=== PATIENT | female | born 1990 | race Caucasian/White ===

== ENCOUNTER 2016-09-12 09:40 | Inpatient (IN) | payer OTHER ==
--- NOTE | 2016-09-11 13:07 | HP ---
Dieter Quigley DATE OF SURGERY: 09/12/2016 PREOPERATIVE DIAGNOSES: 1. Intrauterine at term with two previous sections. 2. Desires tubal ligation. PROCEDURE PLANNED: A repeat low transverse section and a tubal ligation. HISTORY: The patient is a 26-year-old 5, para 2, AB 2 woman with an estimated date of confinement of 09/19/2016 currently at 39 weeks gestation. Her has been uncomplicated. Her first two babies were delivered by and she has been planning a repeat with this . She also states her family will be complete and she wants a tubal ligation. She understands that it is permanent and there is no guarantee of success. PAST MEDICAL HISTORY: Patient's dates are from an ultrasound done at 7 weeks and 1 day. Patient had cholestasis of with her last , but not with this one. PAST SURGICAL HISTORY: She has had two C-sections. CURRENT MEDICATIONS: She is on vitamins. ALLERGIES: No known allergies. FAMILY HISTORY: Noncontributory. SOCIAL HISTORY: Patient is [place] speaking and she lives with her and two children. Does not smoke. Does not use alcohol. REVIEW OF SYSTEMS: Patient denies fever, chills, nausea, vomiting, diarrhea, constipation. PHYSICAL EXAMINATION: GENERAL: She is a healthy appearing woman. VITAL SIGNS: Blood pressure 138/80. HEENT: Normal. LUNGS: Clear. HEART: Normal S1 and S2. ABDOMEN: Soft, nontender. Fundal height of 38 cm. Good heart tones. IMPRESSION: At term with two previous sections who also desires a tubal ligation. PLAN: To do a repeat low transverse section and a tubal ligation. JOB: [id number]
[2016-09-12] MEDS ORDERED: IV START KIT ONE (10:04)
[2016-09-12] MEDS ORDERED: LACTATED RINGERS 1,000 ML ONE (10:05)
[2016-09-12] MEDS ORDERED: SODIUM CHLORIDE 0.9% FLUSH 10 ML ONE (10:05)
[2016-09-12 10:41] VITALS: BMI 32.3
[2016-09-12] MEDS: LACTATED RINGERS 1,000 ML IV SCH ×3 (11:00→14:12)
[2016-09-12] MEDS ORDERED: CEFAZOLIN SODIUM 2 GRAM DUPLEX 2 G in Premix (D5W) 50 ml 1 EACH IV PRN (11:14)
[2016-09-12 11:35] LABS: HEMATOCRIT 30.5 % (37.0-47.0); HEMOGLOBIN 9.9 gm/l (12.0-16.0); MEAN CELL VOLUME 85.2 fl (81.0-99.0); MEAN CORPUSCULAR HEMOGLOBIN 27.7 pg (27.0-31.0); MEAN CORPUSCULAR HGB CONC 32.5 g/dl (33.0-37.0); RED CELL DISTRIBUTION WIDTH 13.8 % (11.5-14.5)
[2016-09-12] MEDS ORDERED: CEFAZOLIN SODIUM 2 GRAM DUPLEX 50 ML IV ONE (11:45)
[2016-09-12] MEDS ORDERED: SPINAL PROCEDURAL TRAY 1 EACH ONE (14:00)
[2016-09-12] MEDS ORDERED: MORPHINE SULFATE (DURAMORPH) 1 MG/ML 10ML AMP ONE (14:02)
[2016-09-12] MEDS ORDERED: ONDANSETRON 4 MG/2ML 2 ML VIAL ONE (14:02)
[2016-09-12] MEDS ORDERED: EPHEDRINE SULFATE UD SYR 25 MG 25 MG/5 ML SYRINGE IV ONE (14:35)
[2016-09-12] MEDS ORDERED: OXYTOCIN 10 UNITS/ML VIAL ONE ×3 (14:46→15:16)
[2016-09-12] MEDS ORDERED: EPHEDRINE SULFATE 50 MG/ML 1ML VIAL IV PRN (15:28)
[2016-09-12] MEDS ORDERED: DIPHENHYDRAMINE HCL 50 MG/1 ML VIAL IV PRN (15:28)
[2016-09-12] MEDS ORDERED: PROMETHAZINE HCL 25 MG/ML VIAL IM PRN (15:28)
[2016-09-12] MEDS ORDERED: NALOXONE HCL 0.4 MG/ML VIAL IV PRN (15:28)
[2016-09-12] MEDS ORDERED: HYDROMORPHONE HCL 2 MG/ML SYRINGE IV PRN (15:28)
[2016-09-12] MEDS ORDERED: KETOROLAC TROMETHAMINE 30 MG/ML 1 ML VIAL ONE (15:31)
[2016-09-12] MEDS ORDERED: DIPHTH,PERTUSS(ACELL),TET VAC 0.5 ML VIAL IM V ONE (15:56)
[2016-09-12] MEDS ORDERED: MEASLES,MUMPS&RUBELLA VACCINE 0.5 ML VIAL SUB-Q V ONE (15:56)
[2016-09-12] MEDS ORDERED: LANOLIN 50 APPLIC/7G TUBE TP PRN (15:56)
[2016-09-12] MEDS: D5LR 1,000 ML IV SCH (18:11)
[2016-09-12] MEDS: NICOTINE 21 MG PATCH 1 EACH TD SCH (18:12)
[2016-09-12] MEDS: HYDROMORPHONE HCL 1 MG/ML SYRINGE IV PRN ×2 (18:27→21:43)
[2016-09-12] MEDS ORDERED: ONDANSETRON 4 MG/2ML 2 ML VIAL IV PRN (20:00)
[2016-09-12] MEDS: IBUPROFEN 800 MG TABLET PO PRN (21:34)
[2016-09-12] MEDS ORDERED: PNEUMOCOCCAL 23-VAL P-SAC VAC 0.5 ML VIAL IM V ONE (22:23)
[2016-09-12] MEDS: OXYCODONE/ACETAMINOPHEN 5/325 MG TABLET PO PRN (23:30)
[2016-09-12] MEDS: AZITHROMYCIN 250 MG TABLET PO SCH (23:32)
[2016-09-13] MEDS: DOCUSATE SODIUM 100 MG CAPSULE PO SCH ×3 (03:03→19:59)
[2016-09-13] MEDS: D5LR 1,000 ML IV SCH ×2 (03:23→08:02)
[2016-09-13] MEDS: IBUPROFEN 800 MG TABLET PO PRN ×4 (03:41→21:51)
[2016-09-13] MEDS: OXYCODONE/ACETAMINOPHEN 5/325 MG TABLET PO PRN ×5 (03:41→19:59)
[2016-09-13 06:41] LABS: HEMATOCRIT 27.5 % (37.0-47.0); HEMOGLOBIN 9.1 gm/l (12.0-16.0); MEAN CELL VOLUME 84.6 fl (81.0-99.0); MEAN CORPUSCULAR HGB CONC 33.1 g/dl (33.0-37.0); RED CELL DISTRIBUTION WIDTH 13.8 % (11.5-14.5)
--- NOTE | 2016-09-13 08:29 | OP ---
Dieter Quigley DATE: 09/12/2016 PREOPERATIVE DIAGNOSES: 1. Intrauterine at term with two previous sections for a repeat section. 2. Desires tubal ligation. POSTOPERATIVE DIAGNOSES: 1. Intrauterine at term with two previous sections for a repeat section. 2. Desires tubal ligation. OPERATION PERFORMED: A repeat low transverse section and a tubal ligation. PROCEDURE: The patient was taken to the operating room and spinal anesthesia was administered. She was placed in the supine position and prepped and draped in the usual sterile fashion. Her previous incisional scar was removed with a scalpel. A second scalpel was used to reach the fascia. The fascial incision was extended with Lux scissors. The perineum was entered with Metzenbaum's and extended laterally. An Gonzalo self retaining retractor was inserted. The peritoneum overlying the lower uterine segment was entered transversely with Metzenbaum's and the bladder pushed downwards. A small yoko was in the uterine lower segment with a knife and extended laterally with fingers. It was very thin lower segment. Amniotic fluid was clear. Using a Mityvac a live born infant male was delivered from a vertex presentation without complications. There was a nuchal cord x1. Cord was not clamped for 30 seconds and then clamped and baby passed off to the nurses. Placenta was manually removed and complete. The uterus was closed in layers with the first layer being a running locking suture of 0 Vicryl, second was an imbricating layer of 0 Vicryl. Hemostasis was checked and found to be good. Each tube was identified by noting its fimbriated end. Each tube was grasped with [place] in its mid section and each tube was doubly ligated with 0 Chromic and the ports within the Ligasure was removed with scissors and the ends cauterized. Hemostasis was good bilaterally. The anterior peritoneum was then closed with a running suture of 2-0 Vicryl. The fascia was closed with two separate running sutures of 0 Vicryl. Skin was closed with abran. Patient tolerated the procedure well and was taken to the recovery room in stable condition. All sponge, instrument, and needle counts were correct. Estimated blood loss 600 mL. JOB: [id number]
[2016-09-13] MEDS ORDERED: NICOTINE 21 MG PATCH 1 EACH TD SCH (09:00)
[2016-09-13] MEDS: PRENATAL VIT/FE FUMARATE/FA 1 TABLET PO SCH (09:32)
--- NOTE | 2016-09-13 11:38 | PDOC44 ---
- Subjective Day: 1 Reports Pain Tolerable, Reports , Reports Lochia Light - Objective Temp Pulse Resp BP Pulse Ox 98.2 F 85 16 94/48 100 09/13/16 07:54 09/13/16 07:54 09/13/16 07:54 09/13/16 07:54 09/12/16 18:00 Lab Results 09/13/16 06:00 WBC 19.1 H RBC 3.25 L Hgb 9.1 L Hct 27.5 L Plt Count 315 Current Medications Generic Name Dose Route Start Last Admin Trade Name Freq PRN Reason Stop Dose Admin Azithromycin 250 mg 09/12/16 18:00 09/12/16 23:32 Zithromax PO 250 mg DAILY HINA Administration Diphenhydramine HCl 25 - 50 mg 09/12/16 15:28 Benadryl IV 09/13/16 14:27 Q4H PRN Itching Diphenhydramine HCl 25 - 50 mg 09/13/16 14:28 Benadryl PO Q6H PRN Itching (Mild/Moderate) Diphenhydramine HCl 25 - 50 mg 09/13/16 14:28 Benadryl IV Q6H PRN Itching (Severe) Docusate Sodium 100 mg 09/12/16 21:00 09/13/16 09:33 Colace PO 100 mg BID HINA Administration Emollient Ointment 1 applic 09/12/16 15:56 [id number] TP PRN PRN sore nipples Ephedrine Sulfate 5 - 10 mg 09/12/16 15:28 Ephedrine Sulfate IV 09/13/16 14:27 Q5M PRN Hydromorphone HCl 0.5 - 2 mg 09/12/16 15:28 09/12/16 21:43 Dilaudid IV 09/13/16 14:27 0.5 mg Q1H PRN Administration Pain (Breakthrough) Hydromorphone HCl 0.5 - 2 mg 09/12/16 15:28 Dilaudid IV 09/13/16 14:27 Q1H PRN Pain Dextrose/Lactated Ringer's 1,000 mls @ 125 mls/hr 09/12/16 15:56 09/13/16 08:02 D5lr IV Not Given .Q8H HINA Ibuprofen 800 mg 09/12/16 21:30 09/13/16 09:32 Motrin PO 800 mg Q6H PRN Administration Pain Multivi/Iron Carb/Fe Sulf/FA/Prenat 1 tab 09/13/16 09:00 09/13/16 09:32 Plus PO 1 tab DAILY HINA Administration Naloxone HCl 0.2 - 0.4 mg 09/12/16 15:28 Narcan IV 09/13/16 14:27 Q5M PRN Nicotine 1 each 09/12/16 15:15 09/12/16 18:12 Nicoderm Cq TD 1 each DAILY HIAN Administration Ondansetron HCl 4 mg 09/12/16 20:00 Zofran IV 09/13/16 14:27 Q6H PRN Nausea/Vomiting Oxycodone/Acetaminophen 1 - 2 tab 09/12/16 15:56 09/13/16 07:51 Percocet 5/325 PO 2 tab Q4H PRN Administration Pain (Moderate) Promethazine HCl 6.25 - 12.5 mg 09/12/16 15:28 Phenergan IM 09/13/16 14:27 Q4H PRN Nausea/Vomiting Sodium Chloride 10 ml 09/12/16 15:56 09/12/16 21:43 Normal Saline 10ml Flush IV 10 ml PRN PRN Administration IV Flush Sodium Chloride 10 ml 09/12/16 17:00 09/13/16 06:22 Normal Saline 10ml Flush IV 10 ml Q8HR HINA Administration - Physical Exam General: Afebrile Psych/Mental Status: Mood/Affect Appropriate Breast: Soft Fundus: Firm Abdomen: Normal Bowel Sounds Genitourinary: Normal 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
[2016-09-13] MEDS ORDERED: DIPHENHYDRAMINE HCL 25 MG CAPSULE PO PRN (14:28)
[2016-09-13] MEDS ORDERED: DIPHENHYDRAMINE HCL 50 MG/1 ML VIAL IV PRN (14:28)
[2016-09-13] MEDS: FERROUS SULFATE (65 Fe) 325 MG TABLET PO SCH (15:42)
[2016-09-13] MEDS: NICOTINE 21 MG PATCH 1 EACH TD SCH (17:55)
[2016-09-13] MEDS: AZITHROMYCIN 250 MG TABLET PO SCH (20:01)
[2016-09-14] MEDS: OXYCODONE/ACETAMINOPHEN 5/325 MG TABLET PO PRN ×6 (00:44→22:07)
[2016-09-14] MEDS: IBUPROFEN 800 MG TABLET PO PRN ×4 (03:50→23:56)
[2016-09-14] MEDS: DOCUSATE SODIUM 100 MG CAPSULE PO SCH ×2 (09:23→22:06)
[2016-09-14] MEDS: PRENATAL VIT/FE FUMARATE/FA 1 TABLET PO SCH (09:23)
--- NOTE | 2016-09-14 12:45 | PDOC44 ---
- Subjective Day: 2 Reports Pain Tolerable, Reports , Reports Lochia Light - Objective Temp Pulse Resp BP Pulse Ox 98.7 F 77 16 105/59 100 09/14/16 07:39 09/14/16 07:39 09/14/16 07:39 09/14/16 07:39 09/12/16 18:00 Current Medications Generic Name Dose Route Start Last Admin Trade Name Freq PRN Reason Stop Dose Admin Azithromycin 250 mg 09/14/16 20:00 Zithromax PO Q24H HINA Diphenhydramine HCl 25 - 50 mg 09/13/16 14:28 Benadryl PO Q6H PRN Itching (Mild/Moderate) Diphenhydramine HCl 25 - 50 mg 09/13/16 14:28 Benadryl IV Q6H PRN Itching (Severe) Docusate Sodium 100 mg 09/12/16 21:00 09/14/16 09:23 Colace PO 100 mg BID HINA Administration Emollient Ointment 1 applic 09/12/16 15:56 09/13/16 14:40 [id number] TP 1 tube PRN PRN Administration sore nipples Ferrous Sulfate 325 mg 09/13/16 11:45 09/13/16 15:42 Ferrous Sulfate PO 325 mg DAILY HINA Administration Dextrose/Lactated Ringer's 1,000 mls @ 125 mls/hr 09/12/16 15:56 09/13/16 08:02 D5lr IV Not Given .Q8H HINA Ibuprofen 800 mg 09/12/16 21:30 09/14/16 10:26 Motrin PO 800 mg Q6H PRN Administration Pain Multivi/Iron Carb/Fe Sulf/FA/Prenat 1 tab 09/13/16 09:00 09/14/16 09:23 Plus PO 1 tab DAILY HINA Administration Nicotine 1 each 09/12/16 15:15 09/13/16 17:55 Nicoderm Cq TD 1 each DAILY HINA Administration Oxycodone/Acetaminophen 1 - 2 tab 09/12/16 15:56 09/14/16 09:23 Percocet 5/325 PO 2 tab Q4H PRN Administration Pain (Moderate) Sodium Chloride 10 ml 09/12/16 15:56 09/13/16 19:59 Normal Saline 10ml Flush IV 10 ml PRN PRN Administration IV Flush Sodium Chloride 10 ml 09/12/16 17:00 09/13/16 21:55 Normal Saline 10ml Flush IV Not Given Q8HR HINA - Physical Exam General: Afebrile Psych/Mental Status: Mood/Affect Appropriate Breast: Soft Fundus: Firm Abdomen: Normal Bowel Sounds Disposition: Stable, Anticipate DC Home Tomorrow
[2016-09-14] MEDS: NICOTINE 21 MG PATCH 1 EACH TD SCH (18:02)
[2016-09-14] MEDS ORDERED: AZITHROMYCIN 250 MG TABLET PO SCH (20:00)
[2016-09-14] MEDS: FERROUS SULFATE (65 Fe) 325 MG TABLET PO SCH (22:22)
[2016-09-14] MEDS: D5LR 1,000 ML IV SCH (22:22)
[2016-09-15] MEDS: OXYCODONE/ACETAMINOPHEN 5/325 MG TABLET PO PRN ×3 (02:30→11:15)
[2016-09-15] MEDS: AZITHROMYCIN 250 MG TABLET PO SCH ×2 (03:06→03:09)
[2016-09-15] MEDS: D5LR 1,000 ML IV SCH (03:07)
[2016-09-15] MEDS: IBUPROFEN 800 MG TABLET PO PRN (05:58)
[2016-09-15 08:59] VITALS: BP 106/65
[2016-09-15] MEDS: PRENATAL VIT/FE FUMARATE/FA 1 TABLET PO SCH (08:59)
[2016-09-15] MEDS: FERROUS SULFATE (65 Fe) 325 MG TABLET PO SCH (08:59)
[2016-09-15] MEDS: DOCUSATE SODIUM 100 MG CAPSULE PO SCH (08:59)
--- NOTE | 2016-09-15 09:20 | PDOC44 ---
- Subjective Day: 3 Reports Pain Tolerable, Reports , Reports Lochia Light - Objective Temp Pulse Resp BP Pulse Ox 98.8 F 85 16 106/65 100 09/15/16 08:53 09/15/16 08:53 09/15/16 08:53 09/15/16 08:53 09/12/16 18:00 Current Medications Generic Name Dose Route Start Last Admin Trade Name Freq PRN Reason Stop Dose Admin Azithromycin 250 mg 09/14/16 20:00 09/14/16 22:07 Zithromax PO 250 mg Q24H HINA Administration Diphenhydramine HCl 25 - 50 mg 09/13/16 14:28 Benadryl PO Q6H PRN Itching (Mild/Moderate) Diphenhydramine HCl 25 - 50 mg 09/13/16 14:28 Benadryl IV Q6H PRN Itching (Severe) Docusate Sodium 100 mg 09/12/16 21:00 09/15/16 08:59 Colace PO 100 mg BID HINA Administration Emollient Ointment 1 applic 09/12/16 15:56 09/13/16 14:40 [id number] TP 1 tube PRN PRN Administration sore nipples Ferrous Sulfate 325 mg 09/13/16 11:45 09/15/16 08:59 Ferrous Sulfate PO 325 mg DAILY HINA Administration Ibuprofen 800 mg 09/12/16 21:30 09/15/16 05:58 Motrin PO 800 mg Q6H PRN Administration Pain Multivi/Iron Carb/Fe Sulf/FA/Prenat 1 tab 09/13/16 09:00 09/15/16 08:59 Plus PO 1 tab DAILY HINA Administration Nicotine 1 each 09/12/16 15:15 09/14/16 18:02 Nicoderm Cq TD 1 each DAILY HINA Administration Oxycodone/Acetaminophen 1 - 2 tab 09/12/16 15:56 09/15/16 07:08 Percocet 5/325 PO 2 tab Q4H PRN Administration Pain (Moderate) - Physical Exam General: Afebrile Psych/Mental Status: Mood/Affect Appropriate Breast: Soft Fundus: Firm Abdomen: Normal Bowel Sounds Genitourinary: Normal 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
--- NOTE | 2016-09-18 11:47 | DS ---
Dieter Quigley DATE OF ADMISSION: 09/12/2016 DATE OF DISCHARGE: 09/15/2016 ADMITTING DIAGNOSIS: Intrauterine at term with previous sections and desiring tubal ligation. HISTORY: The patient is a 26-year-old 5, para 2, AB 2-1-1 with an estimated date of confinement of 09/19/2016 currently at 39 weeks gestation. has been uncomplicated. Her first two babies were delivered by . She has been planning a repeat with this . She states her family is complete and wants her tubes tied. She understands the procedure is permanent and there is no guarantee of success. HOSPITAL COURSE: The patient was admitted and taken to the operating room where she underwent a repeat low transverse section and tubal ligation without complication. Postoperatively she did well. She remained afebrile, ambulating without difficulty, and tolerating her diet. On the third postoperative day she was discharged home. She was given a prescription for Percocet and Colace. She will return to see me in two weeks. JOB: [id number]
== END 2016-09-15 11:30 | disposition home or self-care (01) | DRG 766 ==
LOC: FBC 09:40
PROVIDERS: ADMIT Obstetrics & Gynecology; ATTEND Obstetrics & Gynecology
PROC: 10D00Z1 Extraction of Products of Conception, Low, Open Approach (ICD-10-PCS; principal; 2016-09-12)
PROC: 0UL70ZZ Occlusion of Bilateral Fallopian Tubes, Open Approach (ICD-10-PCS; 2016-09-12)
DX: O34.211 Maternal care for low transverse scar from previous cesarean delivery (principal); N85.8 Other specified noninflammatory disorders of uterus; Z3A.39 39 weeks gestation of pregnancy; Z37.0 Single live birth; Z30.2 Encounter for sterilization